=== PATIENT | female | born 1960 | race Caucasian/White ===

== ENCOUNTER → 2018-06-19 09:51 | Outpatient (CLI) | payer OTHER, SELFPAY ==
[2018-06-19 14:04] LABS: Basophils % 0.4 % (0.1-2.0); Eosinophils # 0.1 K/mm3 (0.0-0.4); Eosinophils % 2.9 % (0.1-12.0); Hematocrit 44.3 % (37.0-47.0); Hemoglobin 14.5 g/dL (12.2-16.2); Lymphocytes # 0.9 K/mm3 (0.7-4.5); Lymphocytes % 24.4 % (10-50); Mean Corpuscular HGB Conc 32.6 g/dL (31.8-35.4); Mean Corpuscular Hemoglobin 31.2 pg (27.0-31.2); Mean Corpuscular Volume 95.7 fl (81-99); Mean Platelet Volume 8.3 fl (7.4-10.4); Monocytes # 0.3 K/mm3 (0.1-1.0); Monocytes % 7.2 % (1.7-9.3); Neutrophils # 2.5 K/mm3 (1.8-7.8); Neutrophils % 65.2 % (37.0-80.0); Platelet Count 238 K/mm3 (142-424); Red Blood Count 4.64 M/mm3 (4.20-5.40); Red Cell Distribution Width 13.5 % (11.5-17.5); White Blood Count 3.9 K/mm3 (4.8-10.8)
[2018-06-19 14:22] LABS: Alanine Aminotransferase 30 U/L (12-78); Albumin Level 3.7 gm/dL (3.4-5.0); Albumin/Globulin Ratio 1.2 (1.1-1.8); Alkaline Phosphatase 132 U/L (46-116); Anion Gap 13.2 mEq/L (5-15); Aspartate Amino Transferase 19 U/L (15-37); Bilirubin,Total 0.4 mg/dL (0.2-1.0); Blood Urea Nitrogen 12 mg/dL (7-18); Calcium 8.9 mg/dL (8.5-10.1); Carbon Dioxide 28 mmol/L (21.0-32.0); Chloride 104 mmol/L (98-107); Chol/HDL Ratio 1.9 (1-3.5); Cholesterol 117 mg/dL (140-200); Creatinine,Serum 0.73 mg/dL (0.55-1.02); Estimated Glomerular Filt Rate 82 ml/min (>60); GFR (African American) 99 ML/MIN (>60); Globulin 3.1 gm/dl (1.3-3.2); Glucose 96 mg/dL (74-106); HDL Cholesterol 62 mg/dL (29-89); LDL Cholesterol 44 mg/dL (0-130); Potassium 4.2 mmoL/L (3.5-5.1); Sodium 141 mmol/L (136-145); Thyroid Stimulating Hormone 5.39 uIU/ml (0.358-3.740); Total Protein,Serum 6.8 gm/dL (6.4-8.2); Triglycerides 56 mg/dL (30-200); VLDL Cholesterol 11 mg/dL (0-40)
[2018-06-19 14:46] LABS: Hemoglobin A1C 5.8 % (0.0-7.0)
[2018-06-21 15:52] LABS: Lamotrigine (Lamictal) 7.7 ug/mL (2.0-20.0)
== END ==
PROVIDERS: PCP Nurse Practitioner Family; Visit Provider Nurse Practitioner Family
DX: E78.5 Hyperlipidemia, unspecified (principal); E03.9 Hypothyroidism, unspecified; I10 Essential (primary) hypertension; R56.9 Unspecified convulsions
CPT/HCPCS: 36415; 80053; 80061; 80168; 83036; 84443; 85025

== ENCOUNTER → 2018-09-10 11:05 | Outpatient (CLI) | payer OTHER, SELFPAY ==
[2018-09-10 11:47] LABS: Basophils % 0.6 % (0.1-2.0); Eosinophils # 0.1 K/mm3 (0.0-0.4); Eosinophils % 2.2 % (0.1-12.0); Hematocrit 47.4 % (37.0-47.0); Hemoglobin 15.1 g/dL (12.2-16.2); Lymphocytes # 1.4 K/mm3 (0.7-4.5); Lymphocytes % 31.6 % (10-50); Mean Corpuscular HGB Conc 31.9 g/dL (31.8-35.4); Mean Corpuscular Hemoglobin 31.3 pg (27.0-31.2); Mean Corpuscular Volume 98.3 fl (81-99); Mean Platelet Volume 8.2 fl (7.4-10.4); Monocytes # 0.3 K/mm3 (0.1-1.0); Monocytes % 7.2 % (1.7-9.3); Neutrophils # 2.6 K/mm3 (1.8-7.8); Neutrophils % 58.5 % (37.0-80.0); Platelet Count 223 K/mm3 (142-424); Red Blood Count 4.82 M/mm3 (4.20-5.40); Red Cell Distribution Width 13.2 % (11.5-17.5); White Blood Count 4.5 K/mm3 (4.8-10.8)
[2018-09-10 12:48] LABS: Alanine Aminotransferase 31 U/L (12-78); Albumin Level 3.7 gm/dL (3.4-5.0); Albumin/Globulin Ratio 1.2 (1.1-1.8); Alkaline Phosphatase 141 U/L (46-116); Anion Gap 13.4 mEq/L (5-15); Aspartate Amino Transferase 24 U/L (15-37); Bilirubin,Total 0.5 mg/dL (0.2-1.0); Blood Urea Nitrogen 9 mg/dL (7-18); Calcium 8.8 mg/dL (8.5-10.1); Carbon Dioxide 29 mmol/L (21.0-32.0); Chloride 105 mmol/L (98-107); Chol/HDL Ratio 2.5 (1-3.5); Cholesterol 126 mg/dL (140-200); Creatinine,Serum 0.77 mg/dL (0.55-1.02); Estimated Glomerular Filt Rate 77 ml/min (>60); GFR (African American) 93 ML/MIN (>60); Globulin 3.1 gm/dl (1.3-3.2); Glucose 97 mg/dL (74-106); HDL Cholesterol 50 mg/dL (29-89); LDL Cholesterol 64 mg/dL (0-130); Potassium 4.4 mmoL/L (3.5-5.1); Sodium 143 mmol/L (136-145); Thyroid Stimulating Hormone 0.52 uIU/ml (0.358-3.740); Total Protein,Serum 6.8 gm/dL (6.4-8.2); Triglycerides 58 mg/dL (30-200); VLDL Cholesterol 12 mg/dL (0-40)
[2018-09-10 14:16] LABS: Hemoglobin A1C 5.5 % (0.0-7.0)
[2018-09-12 13:35] LABS: Lamotrigine (Lamictal) 6.3 ug/mL (2.0-20.0)
== END ==
PROVIDERS: Visit Provider Nurse Practitioner Family
DX: E03.9 Hypothyroidism, unspecified (principal); I10 Essential (primary) hypertension; E78.5 Hyperlipidemia, unspecified; G40.909 Epilepsy, unspecified, not intractable, without status epilepticus
CPT/HCPCS: 36415; 80053; 80061; 80168; 83036; 84443; 85025

== ENCOUNTER → 2021-01-07 14:12 | Outpatient (CLI) | payer OTHER, SELFPAY ==
--- NOTE | 2021-01-07 14:12 | US_ITS ---
PROCEDURE: US TRANSVAGINAL CLINICAL INDICATION: bleeding COMPARISON: No exams were available for comparison FINDINGS: Is. There is a thickened and echogenic appearing endometrium. It measures up to 1.2 cm in with. There is a somewhat hypoechoic solid lesion with heterogenic echogenicity lower uterine segment measuring 1.5 x 1.7 1.2 cm and the appearance is typical of a fibroid. Both ovaries appear somewhat small but normal for age, there is free fluid. IMPRESSION: Findings suggesting endometrial hyperplasia along with uterine fibroid Dictated by: Dr. Chato Dutta MD 01/07/2021 14:53 Dr. Chato Dutta MD in OV 01/07/2021 14:53
== END ==
PROVIDERS: PCP Nurse Practitioner Family; Visit Provider Obstetrics & Gynecology
DX: N95.0 Postmenopausal bleeding (principal)
CPT/HCPCS: 76830

== ENCOUNTER → 2021-03-08 09:14 | Outpatient (CLI) | payer OTHER, SELFPAY ==
[2021-03-08 09:47] LABS: Basophils % 0.7 % (0.1-2.0); Eosinophils # 0.4 K/mm3 (0.0-0.4); Eosinophils % 8.7 % (0.1-12.0); Hemoglobin 14.4 g/dL (12.2-16.2); Lymphocytes # 1.2 K/mm3 (0.7-4.5); Lymphocytes % 29.3 % (10-50); Mean Corpuscular HGB Conc 31.9 g/dL (31.8-35.4); Mean Corpuscular Volume 97.3 fl (81-99); Mean Platelet Volume 8.9 fl (7.4-10.4); Monocytes # 0.4 K/mm3 (0.1-1.0); Monocytes % 8.7 % (1.7-9.3); Neutrophils # 2.1 K/mm3 (1.8-7.8); Neutrophils % 52.6 % (37.0-80.0); Platelet Count 134 K/mm3 (142-424); Red Blood Count 4.63 M/mm3 (4.20-5.40); Red Cell Distribution Width 13.3 % (11.5-17.5); White Blood Count 4.1 K/mm3 (4.8-10.8)
[2021-03-08 09:49] LABS: Urine Pregnancy, HCG Qual. Negative (Negative)
[2021-03-08 10:01] LABS: Barbiturates Screen,Urine Negative ng/ml (<200); Benzodiazepines Screen,Urine Negative ng/ml (<200)
[2021-03-08 10:02] LABS: Amphetamine/Metha Screen,Urine Negative ng/ml (<1000)
[2021-03-08 10:03] LABS: Cannabinoid Screen,Urine Negative ng/ml (<50); Methadone Screen,Urine Negative ng/ml (<300)
[2021-03-08 10:04] LABS: Cocaine Screen,Urine Negative ng/ml (<300); Opiate Screen,Urine Negative ng/ml (<300)
[2021-03-08 10:05] LABS: Phencyclidine Screen,Urine Negative ng/ml (<25)
[2021-03-08 10:55] LABS: Alanine Aminotransferase 12 U/L (12-78); Albumin Level 3.5 g/dl (3.5-5.0); Albumin/Globulin Ratio 1.1 (1.1-1.8); Alkaline Phosphatase 94 U/L (38-126); Anion Gap 8.5 mEq/L (5-15); Aspartate Amino Transferase 23 U/L (14-36); Bilirubin,Total 0.6 mg/dl (0.2-1.3); Blood Urea Nitrogen 10 mg/dl (7-17); Calcium 8.4 mg/dl (8.4-10.2); Carbon Dioxide 29 mmol/L (22.0-30.0); Chloride 106 mmol/L (98-107); Estimated Glomerular Filt Rate 85 ml/min (>60); GFR (African American) 103 ML/MIN (>60); Globulin 3.3 g/dL (1.3-3.2); Glucose 91 mg/dl (74-100); Potassium 4.5 mmoL/L (3.5-5.1); Sodium 139 mmol/L (136-145); Total Protein,Serum 6.8 g/dl (6.3-8.2)
== END ==
PROVIDERS: Visit Provider Obstetrics & Gynecology
DX: Z01.812 Encounter for preprocedural laboratory examination (principal); Z11.52 Encounter for screening for COVID-19; N95.0 Postmenopausal bleeding
CPT/HCPCS: 36415; 80053; 80305; 81025; 85025; U0003

== ENCOUNTER 2021-03-10 11:48 | Day surgery (SDC) | payer OTHER, SELFPAY ==
[2021-03-08 13:30] VITALS: BMI 24.7
[2021-03-10] VITALS (10 sets, daily range): BP systolic 149–160; BP diastolic 64–78; PULSE 44–56; RESP 14–18; TEMP 36.4–43; O2SAT 94–98
--- NOTE | 2021-03-10 13:43 | SUR.PREOP ---
1300- assisted patient to BR and back to stretcher. Carmen stated she was comfortable. Updated her and about preocedure delay
--- NOTE | 2021-03-10 14:37 | P.PN_ITS ---
[facility] Anesthesia Checklist - Patient Identification Patient Identification: Arm Band - Structural Data Admitted From: Home Planned Operative Procedure/s: Hysteroscopy, D&C, Myosure Consent for Planned Operative Procedure(s) Verified: Yes Verified Documents: Surgical Consent, History and Physical - NPO Status Verified Time NPO: 00:00 - Additional verifications Anesthesia Reactions: No Hx Blood Transfusions: No Blood Transfusion Reaction: No - Airway Assessment C-Spine Mobility Assessed: Yes (mp2) TMJ Mobility Assessed: Yes Dentition: Edentulous - Neurological Assessment Level of Consciousness: Awake, Alert - Anesthesia Plan Anesthesia Risk discussed: Yes Anesthesia Plan: Verified ASA Class: II Anesthesia Type: General [facility] History I have reviewed the patient's past medical history: Yes Medical History: Reports:: Hyperlipidemia, Hypertension, Seizures Denies:: Cancer, Diabetes Mellitus Type 1, Diabetes Mellitus Type 2, Internal Pacemaker, MRSA *Have you ever received a pneumonia vaccine?: No *Have you received a flu vaccine this season?: No Other Medical History: Reports: Hypothyroidism. Denies: Blood Transfusion Reaction Anesthesia experience/problems:: nac Other Surgeries: Yes: Colonoscopy. No: Pacemaker Amputation: No Fractures: No - *Social History Last grade of school completed: 11th or 12th Smoking Status: Current every day smoker # Packs/Day (cigarettes): 1 Alcohol Intake: never Substance Use Type: denies use *Occupational Status:: unemployed Housing: house Household Members: spouse *Travel in the last 8 weeks: None Family Hx:: No significant family history
--- NOTE | 2021-03-10 15:19 | HMH.ANESI ---
[facility] Anesthesia Record Part I Intake, IV Amount: 1,000 Estimated blood loss (mL): 10 Urine output (mL): 0 Blood Pressure: 158/78 SaO2: 96 Pulse Rate: 56 Respiratory Rate: 16 Temperature: 98 F Patient is:: Drowsy, Stable Stable to PACU at:: 15:20
--- NOTE | 2021-03-10 16:18 | HMH.OPNOTE ---
Date of procedure: 03/10/21 Pre-op Diagnosis:: Post-menopausal bleeding Thickened endometrium Post-op Diagnosis:: same Procedure performed:: D&C Hysteroscopy with myosure excision of submucosal fibroid Surgeon:: Katharine Duran MD MANAGER [employer]OD [employer]EVERAGE:: Maurisio Longo Anesthesia: GETA Estimated blood loss (mL): 5 Operative findings:: polypoid lesion anterior uterine wall firm lesion c/w submucosal fibroid anterior/right lateral uterine wall Operative note:: The patient was taken to the OR and general anesthesia administered without difficulty. She was prepped/draped in lithotomy position. The cervix was dilated easily and hysteroscopic evaluation performed. Several masses were visualized within the endometrial cavity: 2 smaller polypoid lesion anterior uterine wall and a larger, firm lesion c/w submucosal fibroid anterior/right lateral uterine wall The Myosure was used to excise these lesions and to sample endometrial tissue throughout the cavity. Once this was completed, all instruments were removed from her uterus and vagina. She was taken out of lithotomy position, awakened from anesthesia and taken to the PACU in stable condition. All sponge, needle & instrument counts correct. EBL 5cc. Condition: stable Disposition: PACU Specimens:: endometrial curettings Complications:: none
--- NOTE | 2021-03-11 07:49 | HMH.ANESII ---
[facility] Anesthesia Record Part II Discharge Time: 15:50 Destination: Surgical Day Care (OP Surgery) PACU nurse assessment reviewed?: Yes Patient Condition:: Good Anesthesia Complications:: None Swallowing reflex intact?: Yes Cyanosis?: No Blood Pressure: 155/74 Pulse Rate: 48 Temperature: 98.8 F Mental Status: Alert & Oriented Pain level:: 0 Nausea and/or vomitting:: None Intake, IV Amount: 0
[2021-03-11 07:50] VITALS: BP 155/74; PULSE 48; TEMP 37.1
== END 2021-03-10 16:33 | disposition home or self-care (01) ==
LOC: OR 11:50
PROVIDERS: PCP Nurse Practitioner Family; Visit Provider Obstetrics & Gynecology
PROC: (CPT 58563; principal; 2021-03-10 13:30)
DX: N95.0 Postmenopausal bleeding (principal); R93.89 Abnormal findings on diagnostic imaging of other specified body structures; D25.9 Leiomyoma of uterus, unspecified; E78.5 Hyperlipidemia, unspecified; I10 Essential (primary) hypertension; R56.9 Unspecified convulsions; E03.9 Hypothyroidism, unspecified; Z72.0 Tobacco use; Z79.899 Other long term (current) drug therapy
CPT/HCPCS: 58563; 96374; J2405

== ENCOUNTER → 2023-05-21 10:42 | Outpatient (CLI) | payer OTHER, SELFPAY ==
--- NOTE | 2023-05-21 10:46 | XR_ITS ---
FINAL REPORT CLINICAL HISTORY: foot pain FINDINGS: RIGHT FOOT 3 views of the right foot were obtained. There is no acute fracture or dislocation. There are mild degenerative changes. Visualized joint spaces are normally aligned. Soft tissues are unremarkable. IMPRESSION: No acute bony abnormality. Reviewed, Interpreted and Dictated by Carlos Moreno III, MD Transcribed by Lucinda Canela Authenticated and [facility]
--- NOTE | 2023-05-21 10:46 | XR_ITS ---
FINAL REPORT CLINICAL HISTORY: foot pain FINDINGS: LEFT FOOT Three views of the left foot demonstrate no acute fracture or dislocation. The visualized joint spaces are normally aligned. There are mild degenerative changes. The soft tissues are unremarkable. IMPRESSION: No acute bony abnormality. Reviewed, Interpreted and Dictated by Carlos Moreno III, MD Transcribed by Lucinda Canela Authenticated and [facility]
== END ==
PROVIDERS: PCP Family Medicine; Visit Provider Nurse Practitioner Family
DX: M79.671 Pain in right foot (principal); M79.672 Pain in left foot
CPT/HCPCS: 73630

== ENCOUNTER 2024-03-10 15:12 | Outpatient (CLI) | payer OTHER, SELFPAY ==
[2024-03-10 17:58] LABS: Basophils # 0.1 K/mm3 (0-0.2); Eosinophils # 0.1 K/mm3 (0.0-0.4); Eosinophils % 1.9 % (0.1-12.0); Hemoglobin 15.2 g/dL (12.2-16.2); Lymphocytes # 1.3 K/mm3 (0.7-4.5); Lymphocytes % 25.9 % (10-50); Mean Corpuscular Hemoglobin 31.8 pg (27.0-31.2); Mean Corpuscular Volume 96.4 fl (81-99); Mean Platelet Volume 8.8 fl (7.4-10.4); Monocytes # 0.4 K/mm3 (0.1-1.0); Monocytes % 7.5 % (1.7-9.3); Neutrophils # 3.1 K/mm3 (1.8-7.8); Neutrophils % 63.7 % (37.0-80.0); Platelet Count 230 K/mm3 (142-424); Red Blood Count 4.77 M/mm3 (4.20-5.40); Red Cell Distribution Width 13.8 % (11.5-17.5); White Blood Count 4.9 K/mm3 (4.8-10.8)
[2024-03-10 18:06] LABS: Alanine Aminotransferase 21 U/L (12-78); Albumin/Globulin Ratio 1.3 (1.1-1.8); Alkaline Phosphatase 133 U/L (38-126); Anion Gap 11.7 mEq/L (5-15); Aspartate Amino Transferase 27 U/L (14-36); Bilirubin,Total 0.8 mg/dl (0.2-1.3); Blood Urea Nitrogen 12 mg/dl (7-17); Calcium 9.6 mg/dl (8.4-10.2); Carbon Dioxide 28 mmol/L (22.0-30.0); Chloride 104 mmol/L (98-107); Cholesterol 169 mg/dl (140-200); Estimated Glomerular Filt Rate 85 ml/min (>60); GFR (African American) 102 ML/MIN (>60); Glucose 80 mg/dl (74-100); HDL Cholesterol 56 mg/dl (40-60); Potassium 4.7 mmoL/L (3.5-5.1); Sodium 139 mmol/L (136-145); Triglycerides 72 mg/dl (30-150); VLDL Cholesterol 14 mg/dL (0-40)
[2024-03-10 18:17] LABS: Direct LDL Cholesterol 78.02 mg/dL (100-129)
[2024-03-10 18:36] LABS: Thyroid Stimulating Hormone 0.85 uIU/mL (0.465-4.68)
[2024-03-11 07:14] LABS: HCV Ab Non Reactive (Non Reactive)
[2024-03-11 10:04] LABS: HIV (1&2) Antibody Rapid NONREACTIVE (NONREACTIVE)
== END 2024-03-10 23:59 | disposition home or self-care (01) ==
LOC: LAB.DROPOF 03-11 15:13
PROVIDERS: PCP Family Medicine; Visit Provider Family Medicine
DX: E03.9 Hypothyroidism, unspecified (principal); Z11.4 Encounter for screening for human immunodeficiency virus [HIV]; Z11.59 Encounter for screening for other viral diseases
CPT/HCPCS: 86803; 86703; 80050; 80053; 80061; 84443; 85025

== ENCOUNTER 2024-05-19 13:47 | Outpatient (CLI) | payer OTHER, SELFPAY ==
--- NOTE | 2024-05-19 13:52 | XR_ITS ---
FINAL REPORT CLINICAL HISTORY: Foot Pain COMPARISON: None FINDINGS: RIGHT FOOT: Three views of the right foot were obtained. There is no acute fracture or dislocation. Mild degenerative change is present. There is no soft tissue abnormality. IMPRESSION: Mild degenerative change without acute bony abnormality. Reviewed, Interpreted and Dictated by Carlos Moreno III, MD Transcribed by Julia Stuart Authenticated and [facility]
== END 2024-05-19 23:59 | disposition home or self-care (01) ==
LOC: RAD 13:49
PROVIDERS: PCP Family Medicine; Visit Provider Orthopaedic Surgery
DX: M79.671 Pain in right foot (principal)
CPT/HCPCS: 73630

== ENCOUNTER 2024-08-19 14:32 | Outpatient (CLI) | payer OTHER, SELFPAY ==
--- NOTE | 2024-08-19 14:35 | XR_ITS ---
FINAL REPORT CLINICAL HISTORY: Possible Right Foot sub 3rd 4th met fracture. COMPARISON: 05/19/2024 FINDINGS: RIGHT FOOT 3 views of the right foot were obtained. There is no acute fracture or dislocation. Visualized joint spaces are normally aligned. Soft tissues are unremarkable. IMPRESSION: No acute bony abnormality. Reviewed, Interpreted and Dictated by Daniel Mccloud MD Transcribed by Julia Stuart Authenticated and . [facility]
== END 2024-08-19 23:59 | disposition home or self-care (01) ==
LOC: RAD 14:33
PROVIDERS: PCP Family Medicine; Visit Provider Nurse Practitioner
DX: M79.671 Pain in right foot (principal)
CPT/HCPCS: 73630

== ENCOUNTER 2024-11-05 10:48 | Outpatient (RCR) | payer OTHER, SELFPAY ==
--- NOTE | 2024-11-05 12:01 | HMH.PTOPEV ---
PT Outpatient Evaluation Rehab PT Outpatient Evaluation Start: 11/05/24 10:51 Freq: Status: Active Protocol: Document 11/05/24 10:53 ARIANNE (Rec: 11/05/24 12:01 ARIANNE [id number]) E-signed By Lakshmi Pruett, PT Outpatient Therapy Subjective History Subjective History Pt is a 64 y/o female who reports chronic R plantar foot pain. 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 Pt had a right foot radiograph on 08/19/24 with impression of No acute bony abnormality. Pt reports current symptoms of the plantar aspect of the 3rd and 4th digits. Pt denies more proximal symptoms or noted swelling. Pt denies altered balance, falls or required use of an AD. Pt reports pain is aggravated by standing or walking >5 minutes. Pt reports pain abolishes with sitting and resting. Pt reports she has PowerSteps and a metatarsal pad given to her by her doctor, states she wears them sometimes with noted improvement in symptoms. Pt reports she wore a fracture boot for one day and then was told she no longer needed to. Medical history: Chronic GERD, Hypothyroidism (acquired), Hyperlipidemia, Hypertension, Hx of seizure disorder well controlled with medication Edema: MTP circumference 22cm R foot alignment in standing: high medial arch noted, 4th digit hammertoe New diagnosis of cancer in past 12 No months? Chief Complaint Pain,Paresthesia Symptom Type Burning,Numbness,Tingling Symptoms Relieved By Rest/Positioning Symptoms Aggravated By Standing,Walking Current Functional Limitations Standing,Walking Symptom Description Intermittent Level of pain today (0-10) 0 Pain scale - at its best (0-10) 0 Pain scale - at its worst (0-10) 3 Ankle/Foot Eval Gait Observation General Gait Pattern Observation No Deviations/Normal Assistive Device Ambulation Assistive Device None Palpation Tenderness right Ankle/Foot Palpation Findings Tenderness Ankle/Foot Palpation Overall Comment comparable sign at interspace of 3rd & 4th digits 2/4 TTP ROM Ankle/Foot Dorsiflexion w/Knee Extended 8 Active Range Motion (degrees) Ankle/Foot Plantar Flexion Active Range 40 of Motion (degrees) Ankle/Foot Eversion Active Range of 15 Motion (degrees) Ankle/Foot Inversion Active Range of 20 Motion (degrees) MMT Ankle Dorsiflexion Strength Grade 4- Good- Ankle Plantarflexion Strength Grade 4- Good- Foot Eversion Strength Grade 4 Good Foot Inversion Strength Grade 4 Good Lower Extremity Functional Index Activities Today, do you or would you have any difficulty at all with: a.Any of your usual work, housework or Quite a bit of difficulty school activities b. Your usual hobbies, recreational or Quite a bit of difficulty sporting activities c. Getting into or out of the bath Quite a bit of difficulty d. Walking between rooms Quite a bit of difficulty e. Putting on your shoes or socks Quite a bit of difficulty f. Squatting Quite a bit of difficulty g. Lifting an object, like a bag of Quite a bit of difficulty groceries from the floor h. Performing light activities around Quite a bit of difficulty your home i. Performing heavy activities around A little bit of difficulty your home j. Getting into or out of a car Quite a bit of difficulty k. Walking 2 blocks Quite a bit of difficulty l. Walking a mile Quite a bit of difficulty m. Going up or down 10 stairs (about 1 No difficulty flight of stairs) n. Standing for 1 hour Moderate difficulty o. Sitting for 1 hour Quite a bit of difficulty p. Running on even ground Quite a bit of difficulty q. Running on uneven ground A little bit of difficulty r. Making sharp turns while running fast Moderate difficulty s. Hopping A little bit of difficulty t. Rolling over in bed Quite a bit of difficulty LEFI Score Lower Extremity Functional Index Score 31 Outpatient Therapy Assessment Impairments Problems/Impairmments Palpation Tenderness,Impaired Range of Motion,Impaired Strength,Impaired Walking, Impaired Standing,Subjective C /O Pain,Impaired Self Care/ Self Management Prognosis Rehab Potential Good Clinical Impression Consistent with Diagnosis Yes Short Term Goals Number of Weeks 2 Improve LEFI Score Yes: Improve score to at least 36 to improve overall QOL Improve Self Care/Self Management Yes: report compliance with wear of orthotics/metatarsal pads to assist with p! Patient to be Ind w/ HEP Yes Business Liaison Officer Goals Number of Weeks 4-6 Decreased Palpation Tenderness Yes: 0-1/4 TTP of R 3rd & 4th digit interspace Increase Range of Motion Yes: Improve R ankle AROM DF to 10-15, PF to 45 Increase Strength Yes: Improve R ankle MMT to 4+ -5/5 grossly to assist with function Increase Ability to Walk Yes: 15' without symptoms to assist with iADLs Increase Ability to Stand Yes: 15' without symptoms to assist with ADLS Improve LEFI Score Yes: Improve score to at least 41/80 to improve overall QOL Decrease Subjective C/O Pain Yes: Improve pain at worst to 0-1/10 on VAS to improve overall QOL Outpatient Therapy Plan of Care Treatment Plan May Include Therapeutic Exercise Including Home Yes Exercise Program Manual Therapy Techniques Yes Neuromuscular Re-education Yes Therapeutic Activities to Return to Yes Previous Functional/Work Level Gait Training Yes ADL/Self Care Education Yes Dry Needling Yes Thermal Modalities Yes Electrical Stimulation Yes Ultrasound/Phonophoresis Yes Iontophoresis Yes Orthotics/Bracing/Splinting Yes Vasopneumatic Compression Pump Yes Massage Yes Manual Lymphatic Drainage Yes Eval/Re-Eval Yes Frequency Times per week 2 Duration Number of Weeks 4-6 Addendums This patient is a candidate for social No or vocational rehab? Patient/Guardian verbally acknowledges Yes understanding of treatment program and consents to further treatment? Patient/Guardian verbally acknowledges Yes understanding of diagnosis, prognosis and goals for treatment? Eval Complexity PT Charges 40940 - Low Complexity Shoulder/Elbow Eval Shoulder Objective Measurements Elbow Objective Measurements PHYSICIAN CERTIFICATION: I certify the specified therapy services for Itzel Cruz are required, authorized, and reviewed every 30 days.
== END 2024-11-05 23:59 | disposition home or self-care (01) ==
LOC: PT 10:48
PROVIDERS: PCP Family Medicine; Visit Provider Nurse Practitioner
DX: G57.61 Lesion of plantar nerve, right lower limb (principal); M21.6X1 Other acquired deformities of right foot; R20.8 Other disturbances of skin sensation
CPT/HCPCS: 97110; 97163

== ENCOUNTER 2024-12-02 13:00 | Outpatient (RCR) | payer OTHER, SELFPAY | END 2024-12-09 11:06 | disposition home or self-care (01) | LOC: PT 13:00 | PROVIDERS: PCP Family Medicine; Visit Provider Nurse Practitioner | DX: G57.61 Lesion of plantar nerve, right lower limb (principal); M21.6X1 Other acquired deformities of right foot; R20.8 Other disturbances of skin sensation | CPT/HCPCS: 97014; 97035; 97110; 97112; 97140; G0283 ==

== ENCOUNTER 2025-02-17 09:07 | Outpatient (CLI) | payer OTHER, SELFPAY ==
[2025-02-17 17:13] LABS: Hematocrit 38.4 % (37.0-47.0); Hemoglobin 12.9 g/dL (12.2-16.2); Immature Granulocytes % 0.3 %; Mean Corpuscular HGB Conc 33.6 g/dL (31.8-35.4); Mean Corpuscular Hemoglobin 30.6 pg (27.0-31.2); Mean Corpuscular Volume 91.0 fl (81-99); Nucleated Red Blood Cells % 0 %; Platelet Count 215 K/mm3 (142-424); Red Blood Count 4.22 M/mm3 (4.20-5.40); Red Cell Distribution Width-SD 47.8 fL; White Blood Count 3.6 K/mm3 (4.8-10.8)
[2025-02-17 17:54] LABS: Alanine Aminotransferase 14 U/L (12-78); Albumin Level 4.1 g/dl (3.5-5.0); Albumin/Globulin Ratio 1.8 (1.1-1.8); Alkaline Phosphatase 110 U/L (38-126); Anion Gap 16.7 mEq/L (5-15); Aspartate Amino Transferase 22 U/L (14-36); Bilirubin,Total 0.6 mg/dl (0.2-1.3); Blood Urea Nitrogen 13 mg/dl (7-17); Calcium 9.0 mg/dl (8.4-10.2); Carbon Dioxide 27 mmol/L (22.0-30.0); Chloride 100 mmol/L (98-107); Cholesterol 144 mg/dl (140-200); Creatinine,Serum 0.70 mg/dl (0.52-1.04); Estimated Glomerular Filt Rate 84 ml/min (>60); GFR (African American) 102 ML/MIN (>60); Globulin 2.3 g/dL (1.3-3.2); Glucose 78 mg/dl (74-100); HDL Cholesterol 40 mg/dl (40-60); Potassium 3.7 mmoL/L (3.5-5.1); Sodium 140 mmol/L (136-145); Total Protein,Serum 6.4 g/dl (6.3-8.2); Triglycerides 113 mg/dl (30-150)
[2025-02-17 18:23] LABS: Thyroid Stimulating Hormone 1.00 uIU/mL (0.465-4.68)
--- OUTSIDE RECORDS SUMMARY | 2025-02-18 10:05 | XMS_ITS | Continuity of Care Document ---
Author Organization [facility] Address [address] [place] [address] Care Team Providers Care Supervisor Safety Deposit Name Role Phone NARDA CRUZ Tank Tender [phone] NIKI MALDONADO Primary Care Provider [phone] Assessment No assessment recorded. Plan of Treatment Reminders Order Date Submit Date Provider Last Modified By Organization Details Last Modified Time Details Appointments OV EST 30 2024 01:00P Kiesha Choi PA-C Not available Not available Not available OV EST 15 2024 10:45A M Carlos Michelle Jr, M.D Not available Not available Not available OV EST 15 2024 10:45A M Narda Cruz NP Not available Not available Not available Lab CMP, serum or plasma 2024 025 [facility] (Lab Registration) , [address] [place] [address] [place], [address], 02/16/2025 09:57:32 CBC w/ auto diff 2024 025 [facility] (Lab Registration) , [address] [place] [address] [place], [address], 02/16/2025 09:57:32 Referral None recorded. Procedures None recorded. Surgeries None recorded. Imaging CT, abdomen, w/ contrast 2024 025 [facility] (Scheduling), [address] [place] [address] [place], [address], 02/18/2025 08:27:52 Medication Orders esomepraz ole magnesium 40 mg capsule,d elayed release 2024 025 [facility] [employer], [address] [place] [address], [place], [place], [id number], 02/04/2025 13:45:39 Patient TargetsNo targets recorded. Patient InstructionsNo instructions recorded. Reason for Referral None Reported. Problems Name Problem SNOMED Code Status Onset Date Resolution Date Notes Provider Name and Address Organization Details Recorded Time Irritable bowel syndrome characterized by constipation 155110022 Active 2021 Narda Cruz NP [address], [address], [place], [address], [place] [facility] [place] & [place] 2 13:51:11 Gastritis 2866820 Active 2021 Narda Cruz NP [address], [address], [place], [address], [place] & [place] 2 13:51:17 Abdominal bloating 479007807 Active 2021 Narda Cruz NP [address], [address], [place], [address], [place] & [place] 2 13:51:25 Constipation 43346127 Active 2021 Narda Cruz NP [address], [address], [place], [address], [place] & [place] 2 09:57:07 Abdominal pain 23570456 Active 2022 Narda Cruz NP [address], [address], [place], [address], [place] & [place] 3 12:26:52 Anxiety 02294158 Active 2022 Tammie hawkins, [place] - [place] - [place] & [place] 3 14:17:53 Hypothyroidism 04223526 Active 2022 Tammie Griffiths null, [place] - [place] & [place] 3 14:17:59 Seizure 63633586 Active 2022 Tammie hawkins, [place] - [facility] - [facility] & [place] 3 14:18:06 Depressive disorder 51321640 Active 2022 Tammie Griffiths null, [place] - [facility] [place] & [place] 3 14:18:18 Gastro-esophag eal reflux disease with esophagitis 459745596 Active 2022 Narda Cruz NP [address], [address], [place], [address], [place] [facility] & [place] 3 10:56:45 Generalized abdominal pain 262006486 Active 2022 Narda Cruz NP [address], [address], [place], [address], [place] & [place] 3 10:58:28 Tubular adenomatous polyp of colon 111655077 Active 2022 Narda Cruz NP [address], [address], [place], [address], [place] & [place] 3 13:25:54 Upper abdominal pain 08349904 Active 2023 Narda Cruz NP [address], [address], [place], [address], [place] [facility] [place] [facility] & [place] 4 13:17:06 Cobalamin deficiency 379002767 Active 2023 Marimarielos Noonanfamrandi [place], [place] - [facility] - [facility] & [place] 4 13:55:27 Essential hypertension 57754876 Active 2023 Carlos Michelle Jr, M.D [address], [address], [place], [address], [place] & [place] 4 16:22:00 Peripheral vascular disease 155448098 Active 2023 Carlos Michelle Jr, M.D [address], [address], [place], [address], [place] [facility] [place] [facility] & [place] 4 16:22:50 Tobacco dependence syndrome 20957863 Active 2023 Carlos Michelle Jr, M.D [address] [place] [address], [address], [place], [address], [place] - [facility] - [place] & [place] 16:23:01 Problem Notes None recorded. Procedures Surgical History Date Name Laterality Status Provider Name and Address Organization Details Recorded Time 11/06/19 25 Venipuncture completed Edelmira JACKSON - [facility] - [place] & [place] 11/05/2024 14:05:03 05/08/20 24 Venipuncture completed Mounika JACKSON - [place] - [place] & [place] 05/08/2024 13:19:49 01/10/20 24 Venipuncture completed Mounika JACKSON - [facility] - [place] & [place] 01/10/2024 15:15:14 03/28/20 23 EGD/Endoscopy completed Tammie JACKSON - [place] - [place] & [place] 05/09/2023 13:03:22 03/28/20 23 Colonoscopy completed aTmmie JACKSON - [place] - [place] & [place] 05/09/2023 13:03:32 03/14/20 23 EGD/Endoscopy completed Annamaria JACKSON - [facility] - [place] & [place] 05/08/2023 15:12:39 03/14/20 23 Colonoscopy completed Annamaria JACKSON - [facility] - [place] & [place] 05/08/2023 15:12:56 08/13/19 22 EGD/Endoscopy completed Tammie JACKSON - [facility] - [place] & [place] 06/14/2022 13:25:02 08/13/19 20 Colonoscopy completed Tammie JACKSON - [facility] - [facility] & [place] 06/14/2022 13:24:53 extraction of cataract completed Mounika JACKSON - [facility] - [place] & [place] 05/08/2024 13:19:30 removal of cystostomy tube completed Tammie JACKSON - [facility] - [place] & [place] 06/14/2022 13:24:28 Xcapsl ctrc rmvl cplx wo ecp completed Tammie JACKSON - [facility] - [place] & [place] 06/14/2022 13:24:44 Imaging Results None recorded. Procedure Notes None recorded. Medical Equipment None Reported. Allergies Allergen ID Allergen Name Allergen Category Reaction Reaction Severity Criticality Documentation Date Start Date Code Code System Note Provider Name and Address Organization Details Recorded Time [address] Cipro medicatio n Not available Not available Not available 06/14/202282438 3 RxNorm Tammie Aye [place], [place] - [facility] & [place] 13:19:42 Medications Name Sig Start Date Stop Date Status Note LastModified by Organization Details LastModified Time amoxicillin 500 mg capsule TAKE 1 CAPSULE 3 TIMES EACH DAY FOR 7 DAYS 10/25 completed Not Available Not Available Not Available acetaminoph en 325 mg tablet TAKE 2 TABLETS EVERY 6 HOURS NEEDED 06/14 completed Not Available Not Available Not Available prednisone 10 mg tablet TAKE 4 TABLETS ON 07/25 TO 07/27. TAKE 2 TABLETS ON 07/28 TO 07/30. TAKE 1 TABLET ON 07/31 TO 08/02. 02/28 completed Not Available Not Available Not Available atorvastati n 20 mg tablet TAKE 1 TABLET 1 TIME EACH DAY AT BEDTIME active Not Available Not Available No t Available lamotrigine 200 mg tablet TAKE 1 TABLET 1 TIME EACH DAY active Not Available Not Available No t Available cetirizine 10 mg tablet TAKE 1 TABLET 1 TIME EACH DAY active Not Available Not Available No t Available azithromyci n 250 mg tablet TAKE 2 TABLETS ON THE FIRST DAY, THEN TAKE 1 TABLET EACH DAY ON THE NEXT 4 DAYS. 02/04 completed Not Available Not Available Not Available fluconazole 150 mg tablet 05/08 completed Not Available Not Available Not Available urea 40 % topical cream APPLY A THIN FILM TO THE AFFECTED AREA OF SKIN 2 TIMES EACH DAY 04/22 completed Not Available Not Available Not Available ketorolac 0.5 % eye drops PLACE 1 DROP INTO SURGICAL EYE 4 TIMES EACH DAY FOR 7 DAYS. THEN 1 DROP 3 TIMES EACH DAY FOR 7 DAYS. THEN 1 DROP 2 TIMES EACH DAY FOR 7 DAYS. THEN 1 DROP 1 TIME EACH DAY FOR 7 DAYS 04/22 completed Not Available Not Available Not Available prednisolon e acetate 1 % eye drops,suspe nsion PLACE 1 DROP INTO THE SURGICAL EYE 4 TIMES EACH DAY FOR 7 DAYS. THEN 1 DROP 3 TIMES EACH DAY FOR 7 DAYS. THEN 1 DROP 2 TIMES EACH DAY FOR 7 DAYS. THEN 1 DROP 1 TIME EACH DAY FOR 7 DAYS 04/22 completed Not Available Not Available Not Available amlodipine 10 mg tablet TAKE 1 TABLET 1 TIME EACH DAY active Not Available Not Available No t Available cyanocobala min (vit B-12) 1,000 mcg/mL injection solution INJECT 1 ML INTO A MUSCLE 1 TIME EACH MONTH 02/04 completed Not Available Not Available Not Available esomeprazol e magnesium 40 mg capsule,del ayed release TAKE 1 CAPSULE 1 TIME EACH DAY active Not Available Not Available No t Available levothyroxi ne 125 mcg tablet TAKE 1 TABLET 1 TIME EACH DAY IN THE MORNINGS ON AN EMPTY STOMACH active Not Available Not Available No t Available prednisone 50 mg tablet TAKE 1 TABLET 1 TIME EACH DAY FOR 5 DAYS 02/04 completed Not Available Not Available Not Available levothyroxi ne 150 mcg tablet TAKE 1 TABLET ONCE A DAY IN THE MORNING ON AN EMPTY STOMACH. 06/14 completed Not Available Not Available Not Available losartan 25 mg tablet TAKE 1 TABLET 1 TIME EACH DAY 02/04 completed Not Available Not Available Not Available Gas Relief Extra Strength 125 mg capsule TAKE 1 CAPSULE 4 TIMES EACH DAY, AFTER MEALS AND AT BEDTIME NEEDED 04/22 completed Not Available Not Available Not Available docusate sodium 100 mg capsule TAKE 1 CAPSULE 1 TIME EACH DAY 05/09 completed Not Available Not Available Not Available aspirin 81 mg chewable tablet Chew 1 tablet every day by oral route. active Not Available Not Available No t Available codeine 10 mg-guaifene sin 100 mg/5 mL oral liquid TAKE 10 ML EVERY 6 HOURS NEEDED FOR COUGH 02/04 completed Not Available Not Available Not Available diclofenac sodium 50 mg tablet,gonzalo yed release TAKE 1 TABLET 3 TIMES EACH DAY NEEDED FOR PAIN 04/22 completed Not Available Not Available Not Available metoprolol succinate ER 25 mg tablet,exte nded release 24 hr TAKE 1 TABLET 1 TIME EACH DAY active Not Available Not Available No t Available ibuprofen 600 mg tablet TAKE 1 TABLET EVERY 6 HOURS NEEDED 06/14 completed Not Available Not Available Not Available polyethylen e glycol 3350 17 gram/dose oral powder 02/04 completed Not Available Not Available Not Available methylpredn isolone 4 mg tablets in a dose pack TAKE ACCORDING TO PACKAGE INSTRUCTI ONS 07/30 completed Not Available Not Available Not Available dicyclomine 10 mg capsule TAKE 1 CAPSULE 4 TIMES EACH DAY 30 MINUTES BEFORE MEALS AND AT BEDTIME NEEDED. 06/14 completed Not Available Not Available Not Available Dulcolax (bisacodyl) 5 mg tablet,gonzalo yed release Take 2 tablets by oral route as directed for 1 day. 05/09 completed Not Available Not Available Not Available Ventolin HFA 90 mcg/actuati on aerosol inhaler INHALE 1 PUFF 4 TIMES EACH DAY active Not Available Not Available No t Available olmesartan 20 mg tablet TAKE 1 TABLET 1 TIME EACH DAY active Not Available Not Available No t Available moxifloxaci n 0.5 % eye drops PLACE 1 DROP INTO THE SURGICAL EYE 4 TIMES EACH DAY FOR 7 DAYS 04/22 completed Not Available Not Available Not Available Symbicort 80 mcg-4.5 mcg/actuati on HFA aerosol inhaler INHALE 2 PUFFS 2 TIMES EACH DAY 02/04 completed Not Available Not Available Not Available Stool Softener-St imulant Laxative 8.6 mg-50 mg tablet 02/04 completed Not Available Not Available Not Available Amitiza 8 mcg capsule Take by oral route for 30 days. 05/09 completed Not Available Not Available Not Available Mucus Relief ER 600 mg tablet, extended release TAKE 2 TABLETS EVERY 12 HOURS 06/14 completed Not Available Not Available Not Available Vitals Date Recorded Body height Body mass index (BMI) Body weight Body temperature Oxygen saturation Oxygen saturation in Arterial blood by Pulse oximetry Heart rate Provider Name and Address Organization Details Last Updated DateTime 5 162.56 cm 23.6 kg/m2 73166.5 9 g 97.5 [degF] 97 % 97 % 52 /min Patricia Uma [place] - [facility] & [place] 13:15:43 Social History Question Answer Notes LastModified by Organizat ion Details LastModified Time Tobacco Smoking Status Current Every Day Smoker Tammie [place]kins, [place] - [facility] - [place] & [place] 06/14/2022 13:23:56 Do You Have An Advance Directive? No Information not available 05/07/2024 Are You Blind Or Do You Have Difficulty Seeing? No Information not available 05/07/2024 What Is Your Level Of Caffeine Consumption? Moderate Information not available 01/10/2024 What Was The Date Of Your Most Recent Tobacco Screening? 05/08/2024 [email or web address] Information not available 05/08/2024 At What Age Did You Start Smoking Tobacco? 15 [email or web address] Information not available 05/08/2024 Are You Passively Exposed To Smoke? Yes Information not available 05/07/2024 How Much Tobacco Do You Smoke? 1 PPD 1.5 Packs Information not available 01/10/2024 Has Tobacco Cessation Counseling Been Provided? No Information not available 01/10/2024 Sex: Unknown Functional Status Question Answer Note LastModified by Organizat ion Details LastModified Time Do you use any illicit or recreational drugs? No Information not available 01/10/2024 Do you or have you ever used any other forms of tobacco or nicotine? No Information not available 01/10/2024 What is your level of alcohol consumption? None Information not available 01/10/2024 What is your exercise level? Moderate Information not available 05/07/2024 Mental Status Question Answer Note LastModified by Organization D etails LastModified Time Do you feel stressed (tense, restless, nervous, or anxious, or unable to sleep at night)? [id number] Information not available 05/07/2024 Family History Relationship Description Onset Age of this Age Resolved Age Notes LastModified by Organization Details LastModified Time Mother Malignant neoplastic disease [email or web address] Not available 06/14 13:23:35 Father Malignant neoplastic disease [email or web address] Not available 06/14 13:23:35 Medical History Condition Response Anxiety Disorder Y None Y Seizures/Epilepsy Y Reflux/GERD Y High Cholesterol Y Headaches Y Thyroid Problems Y Hypertension Y Depression Y Hypothyroidism Y Gynecological HistoryNo gynecological history recorded. Obstetrics History GPAL:G 0 P 0 0 0 0 Past Encounters Encounter ID Performer Location Encounter Start Date Encounter Closed Date Diagnosis/Indication Diagnosis SNOMED-CT Code Diagnosis ICD10 Code Diagnosis Note [id number] Vijay Joaquin M.D [facility] [address] [address] 02/04/2025 12:57:59 02/04/2025 13:37:52 Upper abdominal pain 69630724 R10.10 Continued upper abdominal pain that comes and goes. Previously reported improvemen t with avoidance of dairy. CT abdomen 12/27/2023 with no evidence of acute intra-abdo denisse process, however moderate stool noted throughout the colon. EGD 03/2023 with gastritis as well as mild reflux esophagiti s, negative for H pylori or celiac. Normal appearance of gallbladde r on ultrasound 06/2021. HIDA scan 09/2021 with EF 37%. Failed treatment with Dicyclomin e. Recommend CT abdomen with contrast to further evaluate given her continued symptoms. Plan for labs today. Recommend she be evaluated in the ED if she experience s worsening or severe symptoms. Tubular ad enomatous polyp of colon 127392439 D12.6 due for repeat colonoscop y 03/2028 for surveillan ce due to history of colon polyps Gastro-eso phageal reflux disease with esophagitis 851847757 K21.00 Continues esomeprazo le 40 mg daily with controlled symptoms. Mild reflux changes noted on pathology 03/14/2023 . Health Concerns Section Related Observation LastModified by Organization Detai ls LastModified Time None Recorded Concern Status LastModified by Organization Details LastModified Time None Recorded Payers Encounter Date Sequence Insurance Name Policy Number Policy Bull Covered Member ID Bull Member ID Guarantor Name 02/04/2025 1 [employer] [facility] (MEDICAID HMO) Itzel Cruz [id number] Itzel Cruz Notes Date Note Type Note Provider Name and Address Organization Details Recorded Time 02/04/2025 text/html Patient returns to clinic today for follow-up. GERD remains well controlled with use of daily PPI. She continues to report upper abdominal pain that comes and goes. Worse after eating however also occurs without eating. No nausea or vomiting. Continues to report daily bowel movements. CT abdomen from 12/27/2023 noted no evidence of acute intra-abdominal process with moderate stool noted throughout the colon as well as severe plaque in the aorta and iliac vessels.EGD/colono scopy completed 03/14/2023 confirmed gastritis as well as mild reflux esophagitis. Negative H pylori or celiac. Colonoscopy with negative random colon biopsies. Two polyps resected consistent with tubular adenoma as well as hyperplastic polyp.Xray abdomen 06/2022 noted moderate to large amount of stool. Gallbladder US 06/2021 was unremarkable. HIDA scan 09/30/21 with EF 37%. Narda Cruz NP [address] [place] [address], [address], [place], [address], [place] [facility] [place] & [place] 02/04/2025 13:39:54 OBGyn Episode No OBEpisode recorded.
[2025-02-19 08:13] LABS: Hepatitis B Surface Antigen Negative (Negative)
== END 2025-02-17 23:59 | disposition home or self-care (01) ==
LOC: LAB.DROPOF 02-18 09:53
PROVIDERS: PCP Family Medicine; Visit Provider Family Medicine
DX: E78.5 Hyperlipidemia, unspecified (principal); E03.9 Hypothyroidism, unspecified; Z11.59 Encounter for screening for other viral diseases
CPT/HCPCS: 80053; 80061; 84443; 85025; 87340